=== PATIENT | female | born 1975 | race African-American/Black ===

== ENCOUNTER 2020-12-06 16:16 | Emergency (ER) | payer OTHER, MEDICAID ==
[2020-12-06 16:43] VITALS: BP 147/91
--- NOTE | 2020-12-06 17:00 | ER Document Report ---
ED Fall - General Chief Complaint: Fall Injury Stated Complaint: FALL/BACK PAIN,LEFT ANKLE PAIN Time Seen by Provider: 12/06/20 16:48 Primary Care Provider: DOREEN ROB NP [Primary Care Provider] - Follow up as needed Notes: CHIEF COMPLAINT: Injury sustained in a mechanical fall HPI: 45-year-old female presenting for injury sustained in a mechanical fall onto [employer] yesterday. Patient was attempting to go to the bathroom when she lost her balance and slipped on the floor landing on the toilet. Patient complains of left ankle injury. Complains of left thigh discomfort, left lower back pain. Patient also complains of some soreness to the left arm in the forearm region. Patient was able to get up off the floor and ambulate. Denies hip injury. ROS: See HPI - all other systems were reviewed and are otherwise negative Constitutional: no fever Eyes: no drainage, no blurred vision ENT: no runny nose, no sore throat Cardiovascular: no chest pain Resp: no SOB, no cough GI: no vomiting, no diarrhea, no abdominal pain : no dysuria Integumentary: no rash Allergy: no hives Musculoskeletal: + extremity pain or swelling Neurological: no numbness/tingling, no weakness MEDICATIONS: I agree with the patient medications as charted by the RN. ALLERGIES: I agree with the allergies as charted by the RN. PAST MEDICAL HISTORY/PAST SURGICAL HISTORY: Reviewed and agree as charted by RN. SOCIAL HISTORY: Reviewed and agree as charted by RN. FAMILY HISTORY: No significant familial comorbid conditions directly related to patient complaint EXAM: Reviewed vital signs as charted by RN. CONSTITUTIONAL: Alert and oriented and responds appropriately to questions. Well-appearing; well-nourished HEAD: Normocephalic; atraumatic EYES: PERRL; Conjunctivae clear, sclerae non-icteric ENT: normal nose; no rhinorrhea; moist mucous membranes; pharynx without lesions noted, no uvula edema or deviation, no tonsillar hypertrophy, phonation normal NECK: Supple without meningismus; non-tender; no cervical lymphadenopathy, no masses CARD: symmetric distal pulses RESP: Normal chest excursion without splinting or tachypnea ABD/GI: Normal bowel sounds; non-distended; soft, non-tender, no rebound, no guarding; no palpable organomegaly or masses. BACK: The back appears normal and is non-tender to palpation, there is no CVA tenderness EXT: Normal ROM in all joints; mild tenderness over the lateral malleolus of the left ankle on palpation. There is no tenderness on palpation of the tarsals or metatarsals of the left foot. There is no pain on palpation over the proximal fibular region of the left lower extremity. No hip pain on palpation. There is no direct tenderness over the lumbar spine but mild tenderness in the left lateral lumbar musculature. Patient is able to fully flex and extend the left arm at the elbow, wrist without significant discomfort and no restriction; no cyanosis, no effusions, no edema SKIN: Normal color for age and race; warm; dry; good turgor; no acute lesions noted NEURO: Moves all extremities equally; Motor and sensory function intact PSYCH: The patient's mood and manner are appropriate. Grooming and personal hygiene are appropriate. MDM: 45-year-old female primarily presenting for left ankle pain. She has soreness in the left thigh left forearm and left lower back. If x-ray negative for fracture will place on anti-inflammatories follow-up orthopedics - Related data Allergies/Adverse Reactions: morphine Allergy (Verified 12/06/20 16:51) Past Medical History - Social History Smoking Status: Unknown if Ever Smoked Family History: Reviewed & Not Pertinent Physical Exam - Vital signs Vitals: Temp Pulse Resp BP Pulse Ox 98.4 F 93 20 147/91 H 97 12/06/20 16:38 12/06/20 16:38 12/06/20 16:38 12/06/20 16:38 12/06/20 16:38 Course - Re-evaluation Re-evalutation: 12/06/20 17:07 X-ray on my review does not show evidence of a fracture over the lateral mal leolus. Symptomatic treatment orthopedic follow-up - Vital Signs Vital signs: Temp Pulse Resp BP Pulse Ox 98.4 F 93 20 147/91 H 97 12/06/20 16:38 12/06/20 16:38 12/06/20 16:38 12/06/20 16:38 12/06/20 16:38 - Laboratory Results Critical Laboratory Results Reviewed: No Critical Results - Radiology Results Critical Radiology Results Reviewed: No Critical Results Discharge - Discharge Clinical Impression: Fall Qualifiers: Encounter type: initial encounter Qualified Code(s): W19.XXXA - Unspecified fall, initial encounter Left ankle sprain Qualifiers: Encounter type: initial encounter Involved ligament of ankle: unspecified ligament Qualified Code(s): S93.402A - Sprain of unspecified ligament of left ankle, initial encounter Lumbar strain Qualifiers: Encounter type: initial encounter Qualified Code(s): S39.012A - Strain of muscle, fascia and tendon of lower back, initial encounter Condition: Stable Disposition: HOME, SELF-CARE Instructions: Sprained Ankle ([facility]) Additional Instructions: Warm heat to the low back to help with muscle spasm. Ice to the ankle to help with pain and inflammation. Take Voltaren consistently for discomfort. Follow- up with orthopedics for further evaluation and treatment call for appointment. Prescriptions: Diclofenac Sodium [Voltaren 50 Mg Tablet.] 50 mg PO BID #20 tablet. Referrals: DOREEN ROB, LEASING COORDINATOR [Primary Care Provider] - Follow up as needed TAMMIE ARRIETA DO [ACTIVE STAFF] - Follow up as needed
--- NOTE | 2020-12-06 17:26 | RADIOLOGY REPORT (SQ) ---
EXAM DESCRIPTION: ANKLE LEFT COMPLETE IMAGES COMPLETED DATE/TIME: 12/06/2020 5:12 pm REASON FOR STUDY: fall COMPARISON: None. NUMBER OF VIEWS: Three views. TECHNIQUE: AP, lateral, and oblique radiographic images acquired of the left ankle. LIMITATIONS: None. FINDINGS: MINERALIZATION: Normal. BONES: No acute fracture or dislocation. No worrisome bone lesions. Incidental note is made of a pr ominent plantar enthesophyte. JOINTS: No effusions. SOFT TISSUES: Mild circumferential soft tissue edema without retained radiopaque foreign body. OTHER: No other significant finding. IMPRESSION: No evidence of acute osseous injury. TECHNICAL DOCUMENTATION: JOB ID: [id number] 2010 [employer]- All Rights Reserved Reading location - IP/workstation name: [email or web address]
== END 2020-12-06 17:18 | disposition home or self-care (01) ==
LOC: ER 16:16
DX: S93.402A Sprain of unspecified ligament of left ankle, initial encounter (principal); S39.012A Strain of muscle, fascia and tendon of lower back, initial encounter; W01.198A Fall on same level from slipping, tripping and stumbling with subsequent striking against other object, initial encounter; Y93.89 Activity, other specified; Z88.6 Allergy status to analgesic agent; Z88.5 Allergy status to narcotic agent
CPT/HCPCS: 99283